=== PATIENT | male | born 2000 | race Caucasian/White ===

== ENCOUNTER 2018-02-14 14:38 | Outpatient (CLI) | payer BC ==
--- NOTE | 2018-02-14 17:17 | MRI ---
MRI OF THE LEFT KNEE WITHOUT CONTRAST: INDICATION: Left knee pain for a few weeks; positive Shai test. FINDINGS: There is a 7 x 14 mm osteochondral lesion involving the median patellar ridge with associated subchon dral edema on image 4 of series 4 and image 24 of series 6. There is some T2 signal undermining the fragment raising concern for instability. The femoral trochlea articular cartilage is preserved. 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 The median patellofemoral ligament and mediopatellar retinaculum a ppear intact. The ACL, PCL, MCL, and LCLC are intact. The medial and lateral menisci are intact. The articular cartilage of the femorotibial compartments appears well preserved. IMPRESSION: 1. Osteochondral lesion of the median patellar ridge with associated subchondral edema and T2 signal undermining the fragments suspicious for fragment instability. 2. Mild trochlear hypoplasia. 3. The ACL and PCL are intact. POS: [facility]
== END 2018-02-14 14:39 | disposition home or self-care (01) ==
LOC: TBSIIMAG 14:38
PROVIDERS: ATTEND Pediatrics Sports Medicine
DX: M25.462 Effusion, left knee (principal); R29.898 Other symptoms and signs involving the musculoskeletal system; M23.92 Unspecified internal derangement of left knee; M25.862 Other specified joint disorders, left knee; R60.0 Localized edema; M22.2X2 Patellofemoral disorders, left knee

== ENCOUNTER 2018-03-11 07:16 | Day surgery (SDC) | payer BC ==
[2018-03-10 09:51] VITALS: BMI 25.0
[2018-03-11] MEDS ORDERED: PROPOFOL 20 ML ONE (08:07)
[2018-03-11] MEDS ORDERED: Fentanyl 100 MCG/2 ML VIAL ONE (09:37)
[2018-03-11] MEDS ORDERED: CEFAZOLIN/Water 2 GM/20 ML SYRINGE ONE (09:45)
[2018-03-11] MEDS ORDERED: Midazolam HCl 2 mg/2 ml Vial ONE (09:58)
--- NOTE | 2018-03-11 11:44 | OP ---
DATE OF PROCEDURE: 03/11/2018 PREOPERATIVE DIAGNOSIS: Left knee loose cartilage piece on the undersurface of the patella. POSTOPERATIVE DIAGNOSIS: Left knee loose cartilage piece on the undersurface of the patella. PROCEDURE PERFORMED: Left knee arthroscopy with debridement and shaving of loose piece of cartilage from the patella. SURGEON: Rickey Hummel M.D. INCUBATOR OPERATOR: None. BLOOD LOSS: Minimal. COMPLICATIONS: None. ANESTHESIA: He had a general anesthetic, he also had a local knee block. DISPOSITION: He went to the recovery room in stable condition. INDICATIONS: This is a 17-year-old who has had long-term problem with pain and swelling in his left knee and at this time he is presenting for surgery. DESCRIPTION OF PROCEDURE: After all appropriate consent forms were explained and signed, he was take n back to operating room and at this time was given general anesthetic. Once anesthesia was appropri ate, the tourniquet was placed on the left thigh and the leg was then prepped and draped in standard surgical fashion after placing it in the arthroscopic leg alvarado. The limb was exsanguinated and the tourniquet was taken to 300 mmHg. An inferolateral portal was then established. Scope was placed i nto the knee joint. A needle localization technique was then used to make a medial working portal. Diagnostic arthroscopy commenced in the notch, the ACL and PCL probed and found to be intact. Both m edial and lateral compartments were completely normal. The gutters were swept through. There was a couple pieces of small cartilage which were removed with the suction shaver and then we got to the pa tellofemoral joint. In evaluating this and both portals there was a large central unstable lesion wh ich could easily be pulled and opened with a probe and using a combination of the biters and shaver, this was taken back to a stable base. The bone underneath this cartilage was sclerotic and hard and to try and obtain at least a little bit of a fibrocartilaginous scar tissue in there a curet was used to curette the bone down through this hard layer. Once we got a good appearing pink bone we left th is alone. Again, the remaining cartilage of the patella was completely intact surrounding this. A s haver was introduced just to make sure we did not leave any particles of cartilage or bony debris in the knee and once this was done, we removed the knee drained it, closed each portal with a simple nyl on stitch. Bulky sterile dressing was applied and the tourniquet let down. Toes pinked up nicely. The patient was awakened and taken to the recovery room in stable condition. All counts were correct at the end of the case and he did receive preoperative IV antibiotics.
[2018-03-11] MEDS ORDERED: Morphine 4 MG/ML VIAL ONE (12:18)
[2018-03-11] MEDS ORDERED: HYDROcodone/Acetaminophen 5/325 mg Tablet ONE (12:24)
[2018-03-11] MEDS ORDERED: Lidocaine 2% w/Epinephrine 1:200K 20 ML VIAL ONE (13:00)
[2018-03-11] MEDS ORDERED: Bupivacaine HCl 0.5%/Epinephrine 1:200,000/PF 30 ml Vial ONE (13:00)
[2018-03-11] MEDS ORDERED: Dexamethasone 20 MG/5 ML VIAL ONE (13:31)
[2018-03-11] MEDS ORDERED: PHENYLEPHRINE-NS 100 MCG/ML 10 ML SYRINGE ONE (13:31)
[2018-03-11] MEDS ORDERED: PROPOFOL 200 MG/20 ML VIAL ONE (13:31)
[2018-03-11] MEDS ORDERED: Ondansetron PF 4 MG/2 ML Vial ONE (13:31)
[2018-03-11] MEDS ORDERED: ePHEDrine/0.9% NaCl/PF SYRINGE 50 mg/10 ml ONE (13:31)
== END 2018-03-11 13:35 | disposition home or self-care (01) ==
LOC: SDC 07:16
PROVIDERS: ATTEND Orthopaedic Surgery
PROC: 0SBD4ZZ Excision of Left Knee Joint, Percutaneous Endoscopic Approach (ICD-10-PCS; principal; 2018-03-11)
DX: M23.42 Loose body in knee, left knee (principal); M25.862 Other specified joint disorders, left knee; J45.909 Unspecified asthma, uncomplicated
CPT/HCPCS: 96374; G8978-GP-CI; G8979-GP-CI; G8980-GP-CI; J2250; J2270; J2704; J3010